=== PATIENT | female | born 1945 | race Caucasian/White ===

== ENCOUNTER 2016-10-18 06:43 | Emergency (ER) | payer MEDICARE, OTHER ==
[~2016-10-18] VITALS: Ht 162.6 cm; Wt 54.9 kg
[2016-10-18 06:46] VITALS: BP 142/83
[2016-10-18] MEDS ORDERED: CLINDAMYCIN 300 MG CAPSULE PO ONE (07:30)
== END 2016-10-18 08:05 | disposition home or self-care (01) ==
LOC: ED 07:59
DX: L03.114 Cellulitis of left upper limb (principal)
CPT/HCPCS: 99283

== ENCOUNTER 2017-10-27 12:00 | Emergency (ER) | payer MEDICARE, OTHER ==
[~2017-10-27] VITALS: Ht 160 cm; Wt 53.2 kg
[2017-10-27] MEDS ORDERED: SODIUM CHLORIDE FLUSH 10ML SYR IVF ONE (14:00)
[2017-10-27 14:38] LABS: BASOPHILS # (AUTO) 0.01 x10^3/uL (0-0.1); BASOPHILS % (AUTO) 0 % (0-1); EOSINOPHILS # (AUTO) 0.09 x10^3/uL (0-0.4); EOSINOPHILS % (AUTO) 2 % (1-7); LYMPHOCYTES # (AUTO) 2.39 x10^3/uL (1-3.4); LYMPHOCYTES % (AUTO) 39 % (22-44); MD NO; MEAN CORPUSCULAR HEMOGLOBIN 27.8 pg (27.0-34.8); MEAN CORPUSCULAR HGB CONC 33.6 g/dL (32.4-35.8); MEAN CORPUSCULAR VOLUME 82.8 fL (80-100); MEAN PLATELET VOLUME 6.4 fL (7.4-10.4); MONOCYTES # (AUTO) 0.57 x10^3/uL (0.2-0.8); MONOCYTES % (AUTO) 9 % (2-9); NEUTROPHILS # (AUTO) 3.07 x10^3/uL (1.8-6.8); NEUTROPHILS % (AUTO) 50 % (42-75); PLATELET COUNT 146 x10^3/uL (130-400); RED BLOOD COUNT 4.14 x10^6/uL (3.82-5.3); RED CELL DISTRIBUTION WIDTH 16.6 % (9.6-15.2)
[2017-10-27 14:51] LABS: ALBUMIN 3.5 g/dL (3.4-5.0); ANION GAP 3 mmol/L (5-15); CHLORIDE 107 mmol/L (98-107)
[2017-10-27 14:56] LABS: ALANINE AMINOTRANSFERASE 17 U/L (12-78); ALKALINE PHOSPHATASE 99 U/L (45-117); BILIRUBIN,TOTAL 0.5 mg/dL (0.2-1.0); TOTAL PROTEIN 6.3 g/dL (6.4-8.2)
[2017-10-27 16:32] VITALS: BP 125/55
== END 2017-10-27 17:28 | disposition home or self-care (01) ==
LOC: ED 14:36
DX: R16.1 Splenomegaly, not elsewhere classified (principal); E78.5 Hyperlipidemia, unspecified; Z88.0 Allergy status to penicillin; Z88.8 Allergy status to other drugs, medicaments and biological substances; Z88.6 Allergy status to analgesic agent; Z88.1 Allergy status to other antibiotic agents
CPT/HCPCS: 36415; 74176; 76700; 80053; 83690; 85025; 99285

== ENCOUNTER 2019-05-02 07:28 | Emergency (ER) | payer OTHER ==
[~2019-05-02] VITALS: Ht 160 cm; Wt 59.0 kg
[2019-05-02 07:30] VITALS: BP 169/67
--- NOTE | 2019-05-02 07:43 | NUR ---
PT STATES SHE HAS A CYST OR ABCESS ON BASE OF SPINE. PT WITH ERYTHMA AND WOUND THAT APPEARS TO BE CRUSTED OVER. PT STATES IT IS SMALLER TODAY AND SHE IS ABLE TO SIT, SHE THINKS SHE MAY HAVE BURST IT OPEN WHILE SOAKING IN AN EPSON SALT BATH YESTERDAY.
[2019-05-02] MEDS ORDERED: LIDOCAINE-MPF 1%, 5ML ONE (08:10)
[2019-05-02] MEDS ORDERED: LIDOCAINE-MPF 1%, 5ML INFIL ONE (08:30)
== END 2019-05-02 08:44 | disposition home or self-care (01) ==
LOC: ED 08:35
DX: L05.01 Pilonidal cyst with abscess (principal); E78.5 Hyperlipidemia, unspecified
CPT/HCPCS: 10080; 99282

== ENCOUNTER 2019-05-04 08:00 | Emergency (ER) | payer OTHER ==
[~2019-05-04] VITALS: Ht 162.6 cm; Wt 60.3 kg
[2019-05-04 08:02] VITALS: BP 114/53
--- NOTE | 2019-05-04 08:15 | NUR ---
PROVIDER IN ROOM TO PULL PACKING. PROVIDER BANDAGED WOUND AND PT TO BE SENT HOME WITH EXTRA BANDAGE TO CHANGE. PROVIDER EDUCATED PT ON CLEANING TECHNIQUES AND HOW TO BANDAGE WOUND.
== END 2019-05-04 08:36 | disposition home or self-care (01) ==
LOC: ED 08:09
DX: Z48.01 Encounter for change or removal of surgical wound dressing (principal); E78.5 Hyperlipidemia, unspecified
CPT/HCPCS: 99281; 99282